=== PATIENT | male | born 1990 | race Caucasian/White ===

== ENCOUNTER 2022-06-04 16:00 | Emergency (ER) | payer SELFPAY ==
[~2022-06-04] VITALS: Ht 172.7 cm; Wt 69.0 kg
[2022-06-04] MEDS ORDERED: IBUPROFEN 600MG TABLET PO ONE (19:30)
[2022-06-04] MEDS ORDERED: LIDO700A30 TP (20:42)
[2022-06-04] MEDS ORDERED: IBUP-2029 MT (20:42)
[2022-06-04 21:00] VITALS: BP 120/79
== END 2022-06-04 21:11 | disposition home or self-care (01) ==
LOC: ER 16:12
DX: M25.551 Pain in right hip (principal); M54.59 Other low back pain; M25.571 Pain in right ankle and joints of right foot; G89.11 Acute pain due to trauma; V47.6XXA Car passenger injured in collision with fixed or stationary object in traffic accident, initial encounter; Y93.89 Activity, other specified; Y92.488 Other paved roadways as the place of occurrence of the external cause
CPT/HCPCS: 72100; 72170; 73610; 99284